=== PATIENT | male | born 1980 | race Two or more races ===

== ENCOUNTER 2021-10-14 19:21 | Inpatient (IN) | payer OTHER ==
[2021-10-14] MEDS ORDERED: AMPICILLIN NA/SULBACTAM NA 3 GM in SODIUM CHLORIDE 100 ML IVPB ONE (20:43)
[2021-10-14] MEDS ORDERED: ONDANSETRON 4 MG/2 ML VIAL IVPUSH ONE (21:03)
[2021-10-14] MEDS ORDERED: morphine CARPU-JECT 4 MG/1 ML DISP.SYRIN IVPUSH ONE ×2 (21:03→23:21)
[2021-10-14] MEDS ORDERED: ONDANSETRON 4 MG/2 ML VIAL ONE (21:05)
[2021-10-14] MEDS ORDERED: morphine SULFATE 4 MG/ML VIAL ONE ×2 (21:05→23:22)
[2021-10-14 21:56] LABS: BASO % 0.2 % (0-2.0); EOS % 1.2 % (0-4.5); HEMATOCRIT 41.1 % (35.4-49); HEMOGLOBIN 14.1 GM/dL (11.7-16.9); LYMPH % 22.2 % (8-40); MCH 28.1 pg (25.7-33.7); MCHC 34.2 g/dl (32.0-35.9); MEAN PLT VOLUME 7.5 fl (7.5-11.1); MONO % 7.2 % (3.8-10.2); NEUT % 69.2 % (42.8-82.8); PLATELET COUNT 309 10^3/uL (134-434); RBC 5.02 M/mm3 (4.00-5.60); RDW 13.7 % (11.9-15.9); WHITE BLOOD COUNT 9.2 K/mm3 (4.0-10.0)
[2021-10-14 22:18] LABS: CALCIUM 8.7 mg/dL (8.5-10.1)
[2021-10-14 22:19] LABS: BLOOD UREA NITROGEN 11.8 mg/dL (7-18)
[2021-10-14 22:22] LABS: CREATININE 1.2 mg/dL (0.55-1.3)
[2021-10-14 22:23] LABS: BILIRUBIN,TOTAL 0.4 mg/dL (0.2-1); TOT PROT 7.6 g/dl (6.4-8.2)
[2021-10-15] MEDS ORDERED: KETOROLAC TROMETHAMINE 15 MG/ML VIAL IM ONE (00:21)
[2021-10-15] MEDS ORDERED: AMPICILLIN NA/SULBACTAM NA 1.5 GM in SODIUM CHLORIDE 100 ML IVPB SCH ×2 (03:00→08:09)
[2021-10-15] MEDS ORDERED: KETOROLAC TROMETHAMINE 15 MG/ML VIAL ONE (03:05)
[2021-10-15 03:23] VITALS: RESP 18
[2021-10-15 03:47] LABS: METHADONE, UR NEGATIVE (NEGATIVE); PHENCYCLIDINE,URINE NEGATIVE (NEGATIVE); URINE BENZODIAZEPINES NEGATIVE (NEGATIVE)
[2021-10-15 03:48] LABS: COCAINE, UR NEGATIVE (NEGATIVE); URINE BARBITURATES NEGATIVE (NEGATIVE)
[2021-10-15 04:25] LABS: OPIATES, URI POSITIVE (NEGATIVE); URINE AMPHETAMINES NEGATIVE (NEGATIVE)
[2021-10-15 04:55] VITALS: BMI 25.8
[2021-10-15] MEDS: IBUPROFEN 400 MG TABLET (FP) PO PRN ×2 (05:06→13:34)
[2021-10-15] MEDS ORDERED: AMPICILLIN NA/SULBACTAM NA 1.5 GM VIAL ONE ×2 (08:22→08:43)
[2021-10-15] MEDS ORDERED: SODIUM CHLORIDE 100 ML IVPB ONE ×2 (08:22→08:44)
[2021-10-15 08:43] LABS: HEMATOCRIT 39.8 % (35.4-49); HEMOGLOBIN 13.8 GM/dL (11.7-16.9); MCH 28.3 pg (25.7-33.7); MCHC 34.8 g/dl (32.0-35.9); MEAN CELL VOLUME 81.4 fl (80-96); MEAN PLT VOLUME 7.4 fl (7.5-11.1); PLATELET COUNT 303 10^3/uL (134-434); RBC 4.88 M/mm3 (4.00-5.60); RDW 13.6 % (11.9-15.9); WHITE BLOOD COUNT 9.7 K/mm3 (4.0-10.0)
[2021-10-15 09:18] LABS: CALCIUM 9.3 mg/dL (8.5-10.1)
[2021-10-15 09:19] LABS: ALBUMIN 3.8 g/dl (3.4-5.0); BLOOD UREA NITROGEN 10.8 mg/dL (7-18); MAGNESIUM 2.5 mg/dL (1.8-2.4)
[2021-10-15 09:22] LABS: CREATININE 1.1 mg/dL (0.55-1.3); PHOSPHOROUS 3.8 mg/dL (2.5-4.9)
[2021-10-15 09:23] LABS: BILIRUBIN,TOTAL 0.8 mg/dL (0.2-1); TOT PROT 7.3 g/dl (6.4-8.2)
[2021-10-15] MEDS: ENOXAPARIN NA (PORCINE) 40 MG/0.4 ML DISP.SYRIN SQ SCH (11:20)
[2021-10-15] MEDS ORDERED: IBUPROFEN 400 MG TABLET (FP) PO PRN (13:56)
[2021-10-15] MEDS: CLINDAMYCIN 600MG PREMIX IVPB 600 MG/50 ML BAG IVPB SCH ×2 (15:42→17:20)
[2021-10-15] MEDS: morphine SULFATE 4 MG/ML VIAL IVPUSH PRN (20:54)
[2021-10-15] MEDS ORDERED: KETOROLAC TROMETHAMINE 15 MG/ML VIAL IVPUSH ONE (22:45)
[2021-10-16] MEDS: CLINDAMYCIN 600MG PREMIX IVPB 600 MG/50 ML BAG IVPB SCH ×2 (02:16→09:55)
[2021-10-16] MEDS: ENOXAPARIN NA (PORCINE) 40 MG/0.4 ML DISP.SYRIN SQ SCH (09:55)
[2021-10-16] MEDS: morphine SULFATE 4 MG/ML VIAL IVPUSH PRN ×2 (09:55→17:20)
[2021-10-16 12:17] LABS: BLOOD UREA NITROGEN 11.5 mg/dL (7-18); CALCIUM 8.9 mg/dL (8.5-10.1)
[2021-10-16 12:20] LABS: CREATININE 0.9 mg/dL (0.55-1.3)
[2021-10-16] MEDS: CEFAZOLIN 1 GM in DEXTROSE 5%-WATER - 1 GM/50 ML IVPB IVPB SCH ×2 (12:46→17:23)
[2021-10-17 00:08] LABS: FIBROSIS SCORE. 0.17 (0.00-0.21); HCV ALPHA 2 MACRO CHART 137 mg/dL (110-276); NECRO.INFLAM ACT.SCORE 0.33 (0.00-0.17); NECROINFLAM. ACTIVITY GRADE A1-Minimal activity (.)
[2021-10-17] MEDS: morphine SULFATE 4 MG/ML VIAL IVPUSH PRN (02:28)
[2021-10-17] MEDS: CEFAZOLIN 1 GM in DEXTROSE 5%-WATER - 1 GM/50 ML IVPB IVPB SCH ×3 (02:30→18:10)
[2021-10-17 09:00] LABS: HEMATOCRIT 41.8 % (35.4-49); HEMOGLOBIN 14.4 GM/dL (11.7-16.9); MCH 27.9 pg (25.7-33.7); MCHC 34.5 g/dl (32.0-35.9); MEAN CELL VOLUME 80.9 fl (80-96); MEAN PLT VOLUME 7.2 fl (7.5-11.1); PLATELET COUNT 375 10^3/uL (134-434); RBC 5.17 M/mm3 (4.00-5.60); RDW 13.6 % (11.9-15.9); WHITE BLOOD COUNT 6.7 K/mm3 (4.0-10.0)
[2021-10-17 09:23] LABS: CALCIUM 9.2 mg/dL (8.5-10.1)
[2021-10-17 09:24] LABS: ALBUMIN 3.7 g/dl (3.4-5.0); BLOOD UREA NITROGEN 10.1 mg/dL (7-18)
[2021-10-17 09:29] LABS: BILIRUBIN,TOTAL 0.6 mg/dL (0.2-1); TOT PROT 7.3 g/dl (6.4-8.2)
[2021-10-17] MEDS: ENOXAPARIN NA (PORCINE) 40 MG/0.4 ML DISP.SYRIN SQ SCH (10:30)
[2021-10-17] MEDS ORDERED: morphine SULFATE 4 MG/ML VIAL IVPUSH ONE (16:33)
[2021-10-17] MEDS ORDERED: LIDOCAINE HCL 1%, 10 MG/ML (20ML VIAL) ONE (17:15)
[2021-10-17] MEDS ORDERED: LIDOCAINE HCL 1%, 10 MG/ML (20ML VIAL) SQ ONE (17:22)
[2021-10-18] MEDS: CEFAZOLIN 1 GM in DEXTROSE 5%-WATER - 1 GM/50 ML IVPB IVPB SCH ×3 (01:35→17:53)
[2021-10-18] MEDS: ENOXAPARIN NA (PORCINE) 40 MG/0.4 ML DISP.SYRIN SQ SCH (10:00)
[2021-10-18] MEDS ORDERED: morphine SULFATE 4 MG/ML VIAL IVPUSH ONE (16:58)
[2021-10-18] MEDS: morphine SULFATE 4 MG/ML VIAL IVPUSH PRN (18:23)
[2021-10-19] MEDS: CEFAZOLIN 1 GM in DEXTROSE 5%-WATER - 1 GM/50 ML IVPB IVPB SCH ×2 (01:52→11:40)
[2021-10-19] MEDS: morphine SULFATE 4 MG/ML VIAL IVPUSH PRN ×2 (02:46→11:40)
[2021-10-19 11:00] LABS: CALCIUM 9.9 mg/dL (8.5-10.1)
[2021-10-19 11:01] LABS: BLOOD UREA NITROGEN 10.9 mg/dL (7-18)
[2021-10-19 11:04] LABS: CREATININE 0.9 mg/dL (0.55-1.3)
[2021-10-19 11:06] LABS: BILIRUBIN,TOTAL 0.9 mg/dL (0.2-1); TOT PROT 8.1 g/dl (6.4-8.2)
[2021-10-19 11:43] VITALS: BP 115/86; PULSE 80; TEMP 98.2
[2021-10-19] MEDS: ENOXAPARIN NA (PORCINE) 40 MG/0.4 ML DISP.SYRIN SQ SCH (15:22)
== END 2021-10-19 17:20 | disposition left against medical advice (07) | DRG 383 ==
LOC: JER 19:21 → JERBED 23:00 → J5S 10-15 03:45
PROVIDERS: ADMIT Internal Medicine; ATTEND Internal Medicine
DX: L03.113 Cellulitis of right upper limb (principal); U07.1 COVID-19; K76.0 Fatty (change of) liver, not elsewhere classified; M79.641 Pain in right hand; R94.5 Abnormal results of liver function studies; L02.511 Cutaneous abscess of right hand; B95.4 Other streptococcus as the cause of diseases classified elsewhere; S61.411A Laceration without foreign body of right hand, initial encounter; W18.39XA Other fall on same level, initial encounter; Y92.322 Soccer field as the place of occurrence of the external cause
CPT/HCPCS: 36415; 71046-TC-FY; 73070-TC-RT-FY; 73090-TC-RT-FY; 73110-TC-RT-FY; 73130-TC-RT-FY; 73201-TC-RT; 76705-TC; 80048; 80053; 80307; 82172; 82728; 82977; 83010; 83605; 83735; 83883; 84100; 84460; 85025; 85027; 85379; 86704; 87040; 87070; 87076; 87205; 87340; 87350; 87517; 87522; 87902; 93005; 93010; 93971; 99285-25; C9803-CS; Q9967; U0003; U0005